=== PATIENT | female | born 1950 | race Caucasian/White ===

== ENCOUNTER 2022-09-02 08:40 | Emergency (ER) | payer MEDICARE ==
[2022-09-02] VITALS (7 sets, daily range): BP systolic 90–152; BP diastolic 52–85
[~2022-09-02] VITALS: Ht 162.6 cm; Wt 65.9 kg
[~2022-09-02 08:40] MED LIST: CHLORTHALIDONE25 MG PO; FENOFIBRATE134 MG PO; LIPITOR40 MG PO; LISINOPRIL20 MG PO; MELOXICAM7.5 MG PO; PRAVASTATIN80 MG PO; SERTRALINE100 MG PO; TRAMADOL HCL50 MG PO; TRAZODONE50 MG PO
[2022-09-02] MEDS ORDERED: HYDROCO/APAP1 T10 PO (10:52)
== END 2022-09-02 11:24 | disposition home or self-care (01) ==
LOC: ED 08:40
DX: S32.010A Wedge compression fracture of first lumbar vertebra, initial encounter for closed fracture (principal); I10 Essential (primary) hypertension; F41.9 Anxiety disorder, unspecified; W10.9XXA Fall (on) (from) unspecified stairs and steps, initial encounter